=== PATIENT | male | born 1990 ===

== ENCOUNTER 2025-04-13 09:00 | Day surgery (SDC) | payer OTHER ==
[2025-04-05 09:29] LABS: BASO % 0.9 % (0.1-1.2); EOS # 0.35 (0.04-0.54); EOS % 5.0 % (0.7-7.0); LYMPH # 2.55 (1.18-3.74); LYMPH % 36.6 % (19.3-53.1); MEAN PLATELET VOLUME 10.30 fl (9.4-12.4); MONO # 0.61 (0.24-0.82); MONO % 8.8 % (4.7-12.5); NEUT # 3.39 (1.56-6.13); NEUT % 48.6 % (34.0-71.1); RED CELL DISTRIBUTION WIDTH 12.6 % (11.6-14.4)
[2025-04-05 09:37] LABS: URINE APPEARANCE Clear; URINE BILIRRUBIN Negative (NEGATIVE); URINE BLOOD Negative; URINE COLOR Yellow; URINE GLUCOSE Negative (NEGATIVE); URINE KETONE Negative (NEGATIVE); URINE LEUKOCYTE Trace; URINE NITRATE Negative; URINE PROTEIN Negative (NEGATIVE); URINE UROBILINOGEN 0.2 E.U./dl
[2025-04-05 09:41] LABS: URINE WBC 14.7 uL (0.0-23.2)
[2025-04-05 09:52] LABS: INR 1.03; URINE BACTERIA 1.1 uL (0.0-1933); URINE EPITHELIAL CELLS 0.3 uL (0.0-38.8); URINE RBC 0.2 uL (0.0-20.8)
[2025-04-05 09:53] LABS: URINE CAST 0.00 uL (0.0-1.40)
[2025-04-05 10:03] LABS: ALT/SGPT 32.0 U/L (12-78); AST/SGOT 17.0 U/L (15-37); BILIRUBIN TOTAL 0.71 mg/dL (0.3-1.2); BUN CREA RATIO 10.0 (7.0-25.0); CREATININE SERUM 1.26 mg/dL (0.70-1.30); GFR 65.13; GLOBULINA 3.6 G/DL (2.4-3.5); GLUCOSE FASTING 113.0 mg/dL (65-100); OSMOLALITY SERUM 282.0 MOSM/KG (275-295)
[2025-04-13] MEDS ORDERED: CEFAZOLIN SODIUM 1,000 MG VIAL ONE (10:10)
[2025-04-13] MEDS ORDERED: SUGAMMADEX SODIUM 200 MG/2 ML VIAL IV ONE (17:00)
== END 2025-04-13 19:40 | disposition home or self-care (01) ==
LOC: CIR.AMB 09:00
PROVIDERS: ATTEND Surgery
DX: K40.20 Bilateral inguinal hernia, without obstruction or gangrene, not specified as recurrent (principal)
CPT/HCPCS: 49650; C1781